=== PATIENT | female | born 1995 | race Caucasian/White ===

== ENCOUNTER 2017-05-21 20:35 | Emergency (ER) | payer SELFPAY ==
--- NOTE | 2017-05-21 22:42 | RAD ---
PORTABLE CHEST: Date: 05/21/17 HISTORY: Cough. FINDINGS: Lungs are clear. Heart and mediastinum unremarkable. IMPRESSION: No acute abnormality. POS: [facility]
[2017-05-21] MEDS ORDERED: Acetaminophen 500 MG TAB ONE (22:57)
[2017-05-21 23:27] LABS: Bilirubin Negative (Negative); Blood, Urine Negative (Negative); Clarity CLOUDY (Clear); Glucose, Urine (Dipstick) Negative (Negative); Leukocyte Small (Negative); Nitrite Negative (Negative); Protein, Urine (Dipstick) Negative (Neg-Trace); Specific Gravity, Urine 1.031 (1.002-1.036); Urobilinogen 0.2 mg/dL (0.2-1.0)
[2017-05-21 23:28] LABS: Pregnancy Test - Urine (BHCG) Negative (Negative); Pregu Control Background? CLEAR/WHITE (CLR/WHITE); Pregu Control Bar Appear? YES (CONTROL BAR); Specific Gravity 1.031 (1.002-1.036)
[2017-05-21 23:29] LABS: Bacteria/HPF 2+ HPF (None Seen); Hyaline Casts/LPF 7-10 HYALINE CAST LPF (0-3 Hyaline); Pathc Cast-AUWi Flag 1.89 (0-2.49); Squamous Epithelial 21-50 HPF (0-3)
== END 2017-05-21 23:25 | disposition home or self-care (01) ==
LOC: ERS 20:35
DX: J18.9 Pneumonia, unspecified organism (principal); F17.210 Nicotine dependence, cigarettes, uncomplicated; Z71.6 Tobacco abuse counseling
CPT/HCPCS: 71045; 81003; 81015; 81025; 87086; 99406

== ENCOUNTER 2017-07-02 02:59 | Emergency (ER) | payer SELFPAY | END 2017-07-02 03:34 | disposition left against medical advice (07) | LOC: ERS 02:59 | DX: Z53.21 Procedure and treatment not carried out due to patient leaving prior to being seen by health care provider (principal) ==

== ENCOUNTER 2017-11-28 16:18 | Emergency (ER) | payer SELFPAY | END 2017-11-28 17:22 | disposition home or self-care (01) | LOC: ERS 16:18 | DX: L01.00 Impetigo, unspecified (principal); L30.9 Dermatitis, unspecified; F41.9 Anxiety disorder, unspecified; F32.9 Major depressive disorder, single episode, unspecified; F17.210 Nicotine dependence, cigarettes, uncomplicated | CPT/HCPCS: 99282 ==

== ENCOUNTER 2018-08-18 17:06 | Emergency (ER) | payer SELFPAY | END 2018-08-18 18:03 | disposition home or self-care (01) | LOC: ERS 17:06 | DX: L03.116 Cellulitis of left lower limb (principal); M26.609 Unspecified temporomandibular joint disorder, unspecified side; F41.9 Anxiety disorder, unspecified; F32.9 Major depressive disorder, single episode, unspecified; F17.210 Nicotine dependence, cigarettes, uncomplicated | CPT/HCPCS: 99282 ==